=== PATIENT | female | born 1930 | race Caucasian/White ===

== ENCOUNTER → 2016-07-08 | Outpatient (CLI) | payer MEDICARE, BC | END | disposition home or self-care (01) | LOC: RAD 11:26 | DX: M81.0 Age-related osteoporosis without current pathological fracture (principal) ==

== ENCOUNTER 2017-03-28 13:04 | Emergency (ER) | payer MEDICARE, BC ==
[~2017-03-28] VITALS: Ht 149.8 cm; Wt 55.3 kg
[2017-03-28] MEDS ORDERED: ATORVASTATIN CA20 M1 PO (13:44)
[2017-03-28] MEDS ORDERED: ZESTORETIC 20-1 EACH PO (13:45)
[2017-03-28] MEDS ORDERED: ALENDRONATE SOD70 M1 PO (13:45)
== END 2017-03-28 14:42 | disposition home or self-care (01) ==
LOC: ED 13:04
DX: S61.412A Laceration without foreign body of left hand, initial encounter (principal); Z90.710 Acquired absence of both cervix and uterus; Z79.899 Other long term (current) drug therapy; W45.8XXA Other foreign body or object entering through skin, initial encounter; Y93.89 Activity, other specified; Y92.22 Religious institution as the place of occurrence of the external cause; Y99.9 Unspecified external cause status

== ENCOUNTER 2019-01-04 12:31 | Emergency (ER) | payer MEDICARE, BC ==
[~2019-01-04] VITALS: Ht 149.8 cm; Wt 49.0 kg
[~2019-01-04 12:31] MED LIST: ALENDRONATE SOD70 M1 PO; ATORVASTATIN CA20 M1 PO; ZESTORETIC 20-1 EACH PO
[2019-01-05] MEDS ORDERED: ELIQUIS2.5 M1 PO (17:37)
[2019-01-05] MEDS ORDERED: CARVEDILOL6.25 MG PO (17:37)
[2019-01-05] MEDS ORDERED: DIGOX125 MCG PO (17:38)
[2019-01-05] MEDS ORDERED: ASPIRIN CHEWABL81 MG PO (17:38)
[2019-01-05] MEDS ORDERED: CITRACAL + D E1 EACH PO (17:38)
== END 2019-01-04 14:09 | disposition home or self-care (01) ==
LOC: ED 12:31
DX: S30.0XXA Contusion of lower back and pelvis, initial encounter (principal); I25.2 Old myocardial infarction; Z79.899 Other long term (current) drug therapy; Z86.73 Personal history of transient ischemic attack (TIA), and cerebral infarction without residual deficits; Z90.49 Acquired absence of other specified parts of digestive tract; W18.39XA Other fall on same level, initial encounter; Y93.89 Activity, other specified; Y92.89 Other specified places as the place of occurrence of the external cause; Y99.8 Other external cause status

== ENCOUNTER 2019-01-05 17:27 | Emergency (ER) | payer MEDICARE, BC ==
[~2019-01-05] VITALS: Ht 160 cm; Wt 49.9 kg
--- NOTE | ~2019-01-05 | EKG ---
[place], [place] ELECTROCARDIOGRAM REPORT NAME: DOMINICK CUNNINGHAM UNIT #: [id number] ROOM: DOCTOR: EPIPHANY DRAFT REPORT BIRTHDATE: [birth year] [facility] Test Date: 2019-01-05 Test Time: 18:07:11 Pat Name: DOMINICK CUNNINGHAM Department: Room: Gender: F Copper Etcher: : 1930 Requested By: ZACH HENRIQUEZ Order Number: [id number] Reading MD: Mary Lou Fairchild MD Measurements Intervals [place] Rate: 60 P: -76 DE: 178 QRS: -33 QRSD: 124 T: 60 QT: 397 QTc: 397 Interpretive Statements Sinus or ectopic atrial rhythm, P wave are not well visualized. Left bundle branch block Compared to ECG 08/29/2018 21:24:45 Ectopic atrial rhythm now present Sinus tachycardia no longer present Atrial premature complex(es) no longer present Left ventricular hypertrophy no longer present Early repolarization no longer present ST (T wave) deviation no longer present Prolonged QT interval no longer present Electronically Signed On 01-06-2019 12:24:40 PDT by Mary Lou Fairchild MD CM:EKGRPT:ELECTROCARDIOGRAM REPORT 1807 1224 ZACH HENRIQUEZ EPIPHANY DRAFT REPORT ZACH HENRIQUEZ
[2019-01-05] MEDS ORDERED: ELIQUIS2.5 M1 PO (17:37)
[2019-01-05] MEDS ORDERED: CARVEDILOL6.25 MG PO (17:37)
[2019-01-05] MEDS ORDERED: ASPIRIN CHEWABL81 MG PO (17:38)
[2019-01-05] MEDS ORDERED: CITRACAL + D E1 EACH PO (17:38)
[2019-01-05] MEDS ORDERED: DIGOX125 MCG PO (17:38)
[2019-01-05 18:12] LABS: BASO # 0.1 10*3/uL (0.0-0.1); BASO % 0.6 % (0.0-1.0); EOS # 0.4 10*3/uL (0.0-0.4); EOS % 4.1 % (1.0-4.0); HEMOGLOBIN 9.3 g/dl (12.0-16.0); LYMPH # 1.6 10*3/uL (1.3-4.4); LYMPH % 16.4 % (27.0-41.0); MEAN CELL VOLUME 89.6 fl (81.0-99.0); MEAN CORPUSCULAR HGB 26.9 pg (27.0-31.0); MEAN PLATELET VOLUME 9.9 fl (9.6-12.3); MONO % 10.3 % (3.0-9.0); NEUT # 6.5 10*3/uL (2.3-7.9); NEUT % 68.3 % (47.0-73.0); PLATELET COUNT AUTOMATED 205 10*3/uL (130-400); RED BLOOD COUNT 3.46 10*6/uL (4.10-5.10); RED CELL DISTRI WIDTH 14.3 % (0-14.5); WHITE BLOOD COUNT 9.5 10*3/uL (4.8-10.8)
[2019-01-05 18:23] LABS: ACT PARTIAL THROMBO TIME 25.6 SECONDS (20.0-32.1)
[2019-01-05 18:29] LABS: CREATININE 1.14 mg/dL (0.55-1.02); POTASSIUM 4.1 mmol/L (3.5-5.1)
[2019-01-05 18:30] LABS: CKMB 1.4 ng/ml (0.5-3.6); TROPONIN I 0.03 ng/ml (<0.045)
== END 2019-01-05 19:35 | disposition short-term general hospital (02) ==
LOC: ED 17:27
PROVIDERS: Nurse Practitioner
DX: I63.9 Cerebral infarction, unspecified (principal); I10 Essential (primary) hypertension; M81.0 Age-related osteoporosis without current pathological fracture; Z79.899 Other long term (current) drug therapy; Z79.82 Long term (current) use of aspirin; Z86.73 Personal history of transient ischemic attack (TIA), and cerebral infarction without residual deficits

== ENCOUNTER → 2019-06-01 | Outpatient (CLI) | payer MEDICARE, BC ==
[~2019-06-01] MED LIST changes: +ASPIRIN CHEWABL81 MG PO; +CARVEDILOL6.25 MG PO; +CITRACAL + D E1 EACH PO; +DIGOX125 MCG PO; +ELIQUIS2.5 M1 PO
== END | disposition home or self-care (01) ==
LOC: LAB 16:17
DX: I48.21 Permanent atrial fibrillation (principal)